=== PATIENT | female | born 1980 | race Caucasian/White ===

== ENCOUNTER 2023-07-11 17:08 | Emergency (ER) | payer BC, SELFPAY ==
[2023-07-11 17:09] VITALS: BP 147/107; PULSE 103; RESP 19; TEMP 36.9; O2SAT 99
--- NOTE | 2023-07-11 17:17 | ED.GENADULT ---
HPI - General Adult General Chief complaint: Unspecified Stated complaint: FACIAL NUMBESS Time Seen by Provider: 07/11/23 17:14 Source: patient and family Mode of arrival: ambulatory Limitations: no limitations History of Present Illness HPI narrative: patient presents with some left facial pain and tenderness with no injuries has pain discomfort with light touch to the left facial area with some unable to close completely her left eye with a left facial droop and no tenderness in the left ear. Patient has no significant medical history not on it if any medication, no history of high blood pressure no diabetes no family history of strokes. Patient's symptoms started on Thursday and has no fever chills no chest pain no shortness of breath no nausea vomiting. Patient has no neurological deficits. Onset (ago): day(s) Location: mouth and eyes Radiation: non-radiation Severity: mild Quality: burning, stabbing and aching Related Data Home Medications Medication Instructions Recorded Confirmed No Home Medications 07/11/23 07/11/23 Allergies Allergy/AdvReac Type Severity Reaction Status Date / Time No Known Allergies Allergy Verified 07/11/23 17:23 Review of Systems Review of Systems: All systems reviewed & are unremarkable except as noted in HPI and below PMFSH Past Medical History Medical History Patient denies medical problems Exam Const: General: cooperative, healthy appearing, comfortable, no acute distress, well developed, alert and awake HENMT: Head: normal to inspection Head images: 1. facial droop difficulty completely closing the left eye with some pain left side of face Mouth: Yes Normal oral and palatal mucosa present Teeth and gingiva: dentition normal Throat: posterior oropharynx normal Eyes: Other: unable to completely close her left eye Neck: Neck: normal visual inspection, full ROM and no lymphadenopathy Chest: Chest palpation & inspection: normal inspection of the chest Resp: Effort & Inspection: normal respiratory effort and able to speak in complete sentences Auscultation: clear to auscultation bilaterally Cardio: Jugular venous distension: no JVD Palpation: normal PMI Rate: regular rate Rhythm: regular rhythm GI: Inspection: normal to inspection Neuro: General: oriented to person, oriented to place, oriented to time, patient oriented x3, moves all extremities, no meningeal signs and no focal motor deficits Cognition (Neuro): normal cognition Speech: normal speech Gait exam (Neuro): Normal gait present Course Course Emergency Course: patient with Olsen's palsy neurologically intact patient received a dose of acyclovir and prednisone. Vital Signs Vital signs: Vital Signs Temperature 36.9 C 07/11/23 17:09 Pulse Rate 103 H 07/11/23 17:09 Respiratory Rate 19 07/11/23 17:09 Blood Pressure 147/107 H 07/11/23 17:09 Pulse Oximetry 99 07/11/23 17:09 Oxygen Delivery Room Air 07/11/23 17:09 Temperature 36.9 C 07/11/23 17:09 Pulse Rate 103 H 07/11/23 17:09 Respiratory Rate 07/11/23 17:09 Blood Pressure 147/107 H 07/11/23 17:09 Pulse Oximetry 99 07/11/23 17:09 Oxygen Delivery Room Air 07/11/23 17:09 Medical Decision Making Vital Signs Vital Signs: Vital Signs Temperature 36.9 C 07/11/23 17:09 Pulse Rate 103 H 07/11/23 17:09 Respiratory Rate 07/11/23 17:09 Blood Pressure 147/107 H 07/11/23 17:09 Pulse Oximetry 99 07/11/23 17:09 Oxygen Delivery Room Air 07/11/23 17:09 Temperature 36.9 C 07/11/23 17:09 Pulse Rate 103 H 07/11/23 17:09 Respiratory Rate 07/11/23 17:09 Blood Pressure 147/107 H 07/11/23 17:09 Pulse Oximetry 99 07/11/23 17:09 Oxygen Delivery Room Air 07/11/23 17:09 Critical Care Time Critical Care Time Critical Care Time: No Discharge Plan Discharge Clinical Impression: Olsen's palsy
[2023-07-11] MEDS: predniSONE 20 MG TABLET PO (17:30)
[2023-07-11] MEDS: ACYCLOVIR 200 MG CAPSULE 400 MG PO (17:30)
== END 2023-07-11 17:33 | disposition home or self-care (01) ==
PROVIDERS: Emergency Provider Emergency Medicine
DX: G51.0 Bell's palsy (principal)
CPT/HCPCS: 99283; A9270; J7512